=== PATIENT | female | born 1960 | race Caucasian/White ===

== ENCOUNTER → 2023-12-16 11:05 | Outpatient (REF) | payer BC, SELFPAY | LOC: MRI 3T 11:05 | PROVIDERS: ATTENDING PHYSICIAN Specialist; FAMILY PHYSICIAN Family Medicine | DX: D35.01 Benign neoplasm of right adrenal gland (principal); N28.1 Cyst of kidney, acquired | CPT/HCPCS: 74183; A9575 ==

== ENCOUNTER → 2023-12-24 11:18 | Outpatient (REF) | payer BC, SELFPAY | LOC: WDC 11:18 | PROVIDERS: ATTENDING PHYSICIAN Obstetrics & Gynecology; FAMILY PHYSICIAN Family Medicine | DX: Z12.31 Encounter for screening mammogram for malignant neoplasm of breast (principal) | CPT/HCPCS: 77063; 77067 ==

== ENCOUNTER → 2024-12-24 13:54 | Outpatient (REF) | payer OTHER, SELFPAY | LOC: WDC 13:54 | PROVIDERS: ATTENDING PHYSICIAN Obstetrics & Gynecology; FAMILY PHYSICIAN Family Medicine | DX: Z12.31 Encounter for screening mammogram for malignant neoplasm of breast (principal) | CPT/HCPCS: 77063; 77067 ==

== ENCOUNTER → 2025-03-15 16:13 | Outpatient (REF) | payer OTHER, SELFPAY | LOC: RAD 16:13 | PROVIDERS: ATTENDING PHYSICIAN Physician Assistant; FAMILY PHYSICIAN Family Medicine | DX: M15.9 Polyosteoarthritis, unspecified (principal); M25.541 Pain in joints of right hand | CPT/HCPCS: 73120; 73130 ==